=== PATIENT | female | born 1980 | race Caucasian/White ===

== ENCOUNTER 2019-11-27 22:48 | Emergency (ER) | payer OTHER, BC ==
[~2019-11-27] VITALS: Ht 157.5 cm; Wt 102.1 kg
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
[2019-11-27 23:13] LABS: BILIRUBIN,URINE NEGATIVE (NEGATIVE); UROBILINOGEN,URINE NORMAL (NEGATIVE)
[2019-11-27 23:16] VITALS: BP 112/61
[2019-11-27 23:16] LABS: APPEARANCE,URINE CLEAR (CLEAR); UA COLOR YELLOW (YELLOW)
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
[2019-11-27 23:25] LABS: BASOPHIL # 0.1 10^3/uL (0.0-0.1); BASOPHIL % 0.4 % (0.0-0.2); EOSINOPHIL # 0.1 10^3/uL (0.0-0.2); EOSINOPHIL % 0.6 % (0.0-5.0); LYMPHOCYTES # 1.45 10^3/uL1 (1.0-4.8); LYMPHOCYTES % 11.6 % (24.0-44.0); MONOCYTES # 0.5 10^3/uL (0.3-0.8); MONOCYTES % 3.7 % (5.0-12.0); NEUTROPHIL # 10.5 10^3/uL (1.8-7.7); NEUTROPHILS % 83.4 % (41.0-85.0); PLATELET COUNT 297 10^3/uL (150-400); RED CELL DISTRIBUTION WIDTH 12.3 % (11.5-14.5)
--- NOTE | 2019-11-27 23:27 | NUR ---
CT SCAN PATIENT TO CT SCAN VIA BED WITH MARK ROSENTHAL TECH
[2019-11-27 23:37] VITALS: BP 112/64
[2019-11-27 23:40] VITALS: BP 133/89
[2019-11-27 23:42] LABS: CARBON DIOXIDE 23.5 mmol/L (20.0-32)
[2019-11-27] MEDS ORDERED: HUMULIN R SQ STA (23:44)
--- NOTE | 2019-11-27 23:44 | NUR ---
[facility] CALLED, BS 441MG/DL. EDP NOTIFIED
[2019-11-27] MEDS ORDERED: HUMULIN R ONE (23:46)
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
--- NOTE | 2019-11-28 00:05 | NUR ---
IV DC'D TIP INTACT, NO BLEEDING
[2019-11-28 00:10] VITALS: BP 152/81
== END 2019-11-27 23:52 | disposition home or self-care (01) ==
LOC: ER 22:48 → EDBD 22:48 → ER 23:52
DX: S70.311A Abrasion, right thigh, initial encounter (principal); S50.811A Abrasion of right forearm, initial encounter; S09.90XA Unspecified injury of head, initial encounter; E11.65 Type 2 diabetes mellitus with hyperglycemia; M54.2 Cervicalgia; V49.9XXA Car occupant (driver) (passenger) injured in unspecified traffic accident, initial encounter; Y93.89 Activity, other specified; Y92.89 Other specified places as the place of occurrence of the external cause; Y99.8 Other external cause status
CPT/HCPCS: 36415; 70450; 71045; 72125; 73090; 80053; 81002; 85025; 96372; 99284; J1815